=== PATIENT | female | born 1995 | race Caucasian/White ===

== ENCOUNTER 2017-09-02 12:28 | Day surgery (SDC) | payer OTHER ==
[2017-09-02] MEDS ORDERED: FENTAnyl 50 MCG/ML VIAL (16:20)
[2017-09-02] MEDS ORDERED: MIDAZOLAM 1 MG/ML 2 ML INJ ×3 (16:20→16:21)
== END 2017-09-02 17:20 | disposition home or self-care (01) ==
LOC: GIL 12:28
DX: R12 Heartburn (principal); K29.70 Gastritis, unspecified, without bleeding; J45.909 Unspecified asthma, uncomplicated
CPT/HCPCS: 43239; 84703; 87045; 87075; 87081; 87177; 87205; 88305; 88342